=== PATIENT | female | born 1935 | race Caucasian/White ===

== ENCOUNTER 2017-03-19 20:50 | Emergency (ER) | payer MEDICARE, OTHER | END 2017-03-20 00:20 | disposition short-term general hospital (02) | LOC: ER 20:50 | DX: R18.8 Other ascites (principal); K75.9 Inflammatory liver disease, unspecified; R17 Unspecified jaundice; N39.0 Urinary tract infection, site not specified; D64.9 Anemia, unspecified; R53.1 Weakness; I10 Essential (primary) hypertension; E11.9 Type 2 diabetes mellitus without complications | CPT/HCPCS: 36415; 96374; J0696 ==